=== PATIENT | male | born 1935 | race Caucasian/White ===

== ENCOUNTER 2016-06-30 22:45 | Inpatient (IN) | payer MEDICARE, OTHER ==
[~2016-06-30] VITALS: Ht 193 cm; Wt 100.0 kg
[2016-06-30] MEDS ORDERED: MONT10TA6 PO (23:44)
[2016-06-30] MEDS ORDERED: LORA0.5T PO (23:44)
[2016-06-30] MEDS ORDERED: TAMS-11 PO (23:44)
[2016-06-30] MEDS ORDERED: ATOR10TA PO (23:44)
[2016-07-01] MEDS ORDERED: SODIUM CHLORIDE FLUSH 10ML SYR IVF ONE
[2016-07-01 00:22] LABS: HEMOGLOBIN 15.9 g/dL (13.7-18.0)
[2016-07-01 00:31] LABS: ASPARTATE AMINO TRANSFERASE 21 U/L (15-37); BLOOD UREA NITROGEN 13 mg/dL (7-18)
[2016-07-01] MEDS ORDERED: OMNIPAQUE 350 MG/ML, 100ML BOTTLE ONE (01:13)
[2016-07-01] MEDS ORDERED: SODIUM CHLORIDE 0.9% 1,000 ML IV ONE (02:17)
[2016-07-01] MEDS ORDERED: SODIUM CHLORIDE FLUSH 10ML SYR IVF PRN (02:30)
[2016-07-01 03:41] VITALS: BP 145/74
[2016-07-01] MEDS ORDERED: DOCUSATE 100 MG CAPSULE PO PRN (04:30)
[2016-07-01] MEDS ORDERED: TRAZODONE 50MG TABLET PO PRN (04:30)
[2016-07-01] MEDS ORDERED: BISACODYL 10 MG SUPP PR PRN (04:30)
[2016-07-01] MEDS ORDERED: LABETALOL 5MG/ML, 20ML IV PRN (04:30)
[2016-07-01] MEDS ORDERED: ONDANSETRON 2MG/ML, 2ML IVP PRN (04:30)
[2016-07-01] MEDS ORDERED: ACETAMINOPHEN 325 MG TABLET PO PRN (04:30)
[2016-07-01] MEDS ORDERED: POLYETHYLENE GLYCOL 17 GM PACKET PO PRN (04:30)
[2016-07-01] MEDS: SODIUM CHLORIDE 0.9% 1,000 ML IV SCH ×4 (04:55→23:33)
[2016-07-01 07:06] VITALS: BP 94/54
[2016-07-01] MEDS: FAMOTIDINE 20 MG/2 ML IV SCH ×2 (08:32→20:31)
[2016-07-01] MEDS: ENOXAPARIN 40 MG/0.4 ML SQ SCH (08:32)
[2016-07-01] MEDS: LORazepam 0.5MG TABLET PO SCH ×2 (13:02→20:31)
[2016-07-01] MEDS: TAMSULOSIN 0.4 MG CAP.ER.24H PO SCH (13:02)
[2016-07-01] MEDS: MONTELUKAST 10 MG TABLET PO SCH (13:02)
[2016-07-01 13:54] VITALS: BP 136/71
[2016-07-01 19:28] VITALS: BP 123/79
[2016-07-01] MEDS ORDERED: ATORVASTATIN 10 MG TABLET PO SCH (21:00)
[2016-07-01 22:01] VITALS: BP 145/68
[2016-07-02 02:46] VITALS: BP 130/67
[2016-07-02 06:38] VITALS: BP 144/75
[2016-07-02] MEDS: SODIUM CHLORIDE 0.9% 1,000 ML IV SCH ×2 (06:38→13:21)
[2016-07-02] MEDS: ENOXAPARIN 40 MG/0.4 ML SQ SCH (08:31)
[2016-07-02] MEDS: MONTELUKAST 10 MG TABLET PO SCH (08:31)
[2016-07-02] MEDS: LORazepam 0.5MG TABLET PO SCH ×2 (08:31→08:35)
[2016-07-02] MEDS: FAMOTIDINE 20 MG/2 ML IV SCH (08:31)
[2016-07-02] MEDS: TAMSULOSIN 0.4 MG CAP.ER.24H PO SCH (08:31)
[2016-07-02 14:58] VITALS: BP 134/78
== END 2016-07-02 16:25 | disposition home or self-care (01) | DRG 389 ==
LOC: ED 23:59 → EDIP 07-01 02:17 → 3NE 07-01 03:01 → 3NW 07-01 21:55
PROVIDERS: ADMIT Internal Medicine; ATTEND Internal Medicine
DX: K56.60 Unspecified intestinal obstruction (principal); K55.9 Vascular disorder of intestine, unspecified; E87.2 Acidosis; K21.9 Gastro-esophageal reflux disease without esophagitis; E78.00 Pure hypercholesterolemia, unspecified; E78.5 Hyperlipidemia, unspecified; I10 Essential (primary) hypertension; I35.0 Nonrheumatic aortic (valve) stenosis; J45.909 Unspecified asthma, uncomplicated; K52.9 Noninfective gastroenteritis and colitis, unspecified; M10.9 Gout, unspecified; N40.0 Benign prostatic hyperplasia without lower urinary tract symptoms; Z66 Do not resuscitate; Z95.2 Presence of prosthetic heart valve; Z85.038 Personal history of other malignant neoplasm of large intestine; Z90.49 Acquired absence of other specified parts of digestive tract; Z88.6 Allergy status to analgesic agent; Z88.5 Allergy status to narcotic agent; Z88.8 Allergy status to other drugs, medicaments and biological substances
CPT/HCPCS: 36415; 74177; 80053; 83605; 83690; 85025; 96360; J1650; Q9967; J7030; S0028

== ENCOUNTER 2016-11-18 05:50 | Observation (INO) | payer MEDICARE ==
[~2016-11-18] VITALS: Ht 193 cm; Wt 92.4 kg
[~2016-11-18 05:50] MED LIST: ATOR10TA PO; LORA0.5T PO; MONT10TA6 PO; TAMS-11 PO
[2016-11-18] MEDS ORDERED: LACTATED RINGERS 1,000 ML IV SCH (06:20)
[2016-11-18 06:21] VITALS: BP 160/81
[2016-11-18] MEDS ORDERED: EPINEPHRINE 1 MG/ML, 1ML ONE (06:47)
[2016-11-18] MEDS ORDERED: BUPIVACAINE/PF 0.5% ONE (06:47)
[2016-11-18] MEDS ORDERED: MIDAZOLAM 1 MG/ML, 2ML ONE (07:14)
[2016-11-18] MEDS ORDERED: FENTANYL PF 100 MCG/2ML ONE ×2 (07:15)
[2016-11-18] MEDS ORDERED: NEOSTIGMINE 1 MG/ML, 10ML ONE (07:30)
[2016-11-18] MEDS ORDERED: CEFAZOLIN 1,000 MG ONE (07:30)
[2016-11-18] MEDS ORDERED: ROCURONIUM 10 MG/ML ONE ×4 (07:30)
[2016-11-18] MEDS ORDERED: SUCCINYLCHOLINE 20 MG/ML, 10ML ONE (07:30)
[2016-11-18] MEDS ORDERED: GLYCOPYRROLATE 0.2MG/1ML ONE (07:30)
[2016-11-18] MEDS ORDERED: ONDANSETRON 2MG/ML, 2ML ONE (07:30)
[2016-11-18] MEDS ORDERED: DEXAMETHASONE 4 MG/ML, 1ML ONE (07:30)
[2016-11-18] MEDS ORDERED: PROPOFOL 10 MG/ML, 20ML ONE (07:30)
[2016-11-18] MEDS ORDERED: BUPIVACAINE/PF-EPI 0.5% 1:200K INFIL ONE (07:53)
[2016-11-18] MEDS ORDERED: ALBUTEROL SULFATE 2.5 MG/3 ML NPPB PRN (08:00)
[2016-11-18] MEDS ORDERED: PROMETHAZINE 25 MG/ML, 1ML IV PRN (08:00)
[2016-11-18] MEDS ORDERED: ACETAMINOPHEN 325 MG TABLET PO PRN (08:00)
[2016-11-18] MEDS ORDERED: EPHEDRINE 50 MG/ML, 1ML IVPush PRN (08:00)
[2016-11-18] MEDS ORDERED: LABETALOL 5MG/ML, 20ML IV PRN (08:00)
[2016-11-18] MEDS ORDERED: hydrALAzine 20 MG/ML, 1ML IV PRN (08:00)
[2016-11-18] MEDS ORDERED: HYDROcodone/APAP 7.5-325MG/15ML UDC PO PRN (08:00)
[2016-11-18] MEDS ORDERED: OXYcodone 5 MG/5 ML ORAL.SOL UDC PO PRN (08:00)
[2016-11-18] MEDS ORDERED: MEPERIDINE/PF 25MG/0.5ML IVPush PRN (08:00)
[2016-11-18] MEDS ORDERED: ONDANSETRON 2MG/ML, 2ML IVPush PRN ×2 (08:00→13:00)
[2016-11-18] MEDS ORDERED: METOPROLOL 1 MG/ML, 5ML IV PRN (08:00)
[2016-11-18] MEDS ORDERED: FENTANYL PF 100 MCG/2ML IV PRN (08:00)
[2016-11-18] MEDS ORDERED: KETOROLAC 30 MG/1 ML ONE (09:41)
[2016-11-18] MEDS ORDERED: ACETAMINOPHEN 650 MG/20.3 ML UDC ONE (09:41)
[2016-11-18] MEDS ORDERED: OXYcodone 5 MG/5 ML ORAL.SOL UDC ONE (09:42)
[2016-11-18] MEDS: HYDROmorphone 1 MG/ML, 1ML IV PRN ×3 (09:43→10:19)
[2016-11-18] MEDS ORDERED: HYDROmorphone 1 MG/ML, 1ML ONE ×2 (09:46→10:15)
[2016-11-18] MEDS ORDERED: KETOROLAC 30 MG/1 ML IVPush ONE (10:00)
[2016-11-18] MEDS ORDERED: MEPERIDINE/PF 25MG/0.5ML ONE (10:16)
[2016-11-18] MEDS: LACTATED RINGERS 1,000 ML IV SCH ×2 (13:00→21:17)
[2016-11-18] MEDS ORDERED: HYDROmorphone 2 MG/ML, 1ML IV PRN (13:00)
[2016-11-18] MEDS ORDERED: OXYcodone/APAP 5/325MG TABLET PO PRN (13:00)
[2016-11-18] MEDS ORDERED: DIPHENHYDRAMINE 50 MG/ML, 1ML IVPush PRN (13:00)
[2016-11-18 14:30] VITALS: BP 118/66
[2016-11-18] MEDS ORDERED: KETOROLAC 30 MG/1 ML IV PRN (15:00)
[2016-11-18] MEDS: TAMSULOSIN 0.4 MG CAP.ER.24H PO SCH (18:01)
[2016-11-18 20:10] VITALS: BP 133/67
[2016-11-18] MEDS: ATORVASTATIN 10 MG TABLET PO SCH (20:21)
[2016-11-18 23:23] VITALS: BP 78/49
[2016-11-18 23:24] VITALS: BP 67/45
[2016-11-18 23:28] VITALS: BP 91/45
[2016-11-19 00:46] VITALS: BP 96/63
[2016-11-19] MEDS ORDERED: OXYC-302 PO (04:50)
[2016-11-19] MEDS ORDERED: POLY17PO5 PO (04:52)
[2016-11-19 04:59] VITALS: BP 100/59
[2016-11-19 07:33] VITALS: BP 98/57
[2016-11-19] MEDS: ENOXAPARIN 40 MG/0.4 ML SQ SCH (08:21)
[2016-11-19] MEDS: TAMSULOSIN 0.4 MG CAP.ER.24H PO SCH (08:21)
[2016-11-19] MEDS: LACTATED RINGERS 1,000 ML IV SCH (08:21)
[2016-11-19] MEDS: MONTELUKAST 10 MG TABLET PO SCH (08:21)
[2016-11-19] MEDS ORDERED: TAMSULOSIN 0.4 MG CAP.ER.24H PO SCH (09:00)
[2016-11-19 12:56] VITALS: BP 101/50
[2016-11-19] MEDS ORDERED: NS + 20MEQ KCL 1,000 ML IV SCH (15:30)
[2016-11-19] MEDS: NS + 20MEQ KCL 1,000 ML IV SCH (16:12)
[2016-11-19 20:00] VITALS: BP 134/69
[2016-11-19] MEDS: ATORVASTATIN 10 MG TABLET PO SCH (20:58)
[2016-11-20 00:40] VITALS: BP 108/57
[2016-11-20] MEDS: NS + 20MEQ KCL 1,000 ML IV SCH ×2 (02:30→11:01)
[2016-11-20 05:32] LABS: HEMATOCRIT 29.4 % (39.2-51.8)
[2016-11-20 06:03] LABS: BLOOD UREA NITROGEN 19 mg/dL (7-18)
[2016-11-20 07:28] VITALS: BP 121/69
[2016-11-20] MEDS: ENOXAPARIN 40 MG/0.4 ML SQ SCH (08:52)
[2016-11-20] MEDS: TAMSULOSIN 0.4 MG CAP.ER.24H PO SCH (08:52)
[2016-11-20] MEDS: MONTELUKAST 10 MG TABLET PO SCH (08:52)
[2016-11-20] MEDS ORDERED: ALBUTEROL SULFATE 2.5 MG/3 ML ONE (09:05)
[2016-11-20] MEDS: ALBUTEROL SULFATE 2.5 MG/3 ML NPPB SCH ×2 (09:06→14:10)
[2016-11-20] MEDS ORDERED: ALBUTEROL SULFATE 2.5 MG/3 ML NPPB PRN (09:30)
[2016-11-20] MEDS ORDERED: PNEUMOCOCCAL 23 VACCINE IM-VACC ONE (11:00)
[2016-11-20 13:25] VITALS: BP 121/76
== END 2016-11-20 15:10 | disposition home or self-care (01) ==
LOC: OUT 05:50 → 4NOR 11:34 → ORIP 12:55 → OUT 13:01 → 4NOR 15:02 → INTOOBSV 11-19 15:10 → OBSVTOIN 11-19 15:10
PROVIDERS: ADMIT Colon & Rectal Surgery; ATTEND Colon & Rectal Surgery
DX: K43.2 Incisional hernia without obstruction or gangrene (principal); Z23 Encounter for immunization
CPT/HCPCS: 36415; 49652; 74000; 80048; 83735; 85025; 88305; 90732; 94640; 96372; 96374; C1781; G0009; G0378; J0171; J0330; J0690; J1100; J1170; J1650; J1885; J2175; J2250; J2405; J2704; J2710; J3010; J3480; J3490; J7120; S2900; J7613